=== PATIENT | male | born 1995 | race Caucasian/White ===

== ENCOUNTER → 2018-03-01 | Outpatient (CLI) | payer OTHER ==
[~2018-03-01] MED LIST: NAPR-1071 PO
--- NOTE | 2018-03-01 16:15 | Diagnostic Imaging Report ---
INDICATION: Rib pain bilaterally. TIME OF EXAM: 2:33 PM COMPARISON: Correlation is made with prior chest from 07/31/2015. FINDINGS: The heart size is normal. The lungs are clear. Pulmonary vascularity is normal. No infiltrate, effusion or pneumothorax is seen. IMPRESSION: No acute abnormality is detected. Dictated by: Dictated on workstation # [id number]
--- NOTE | 2018-03-01 16:31 | Diagnostic Imaging Report ---
Indication: Bilateral rib pain. Time of exam: 2:34 PM Multiple views of the bilateral ribs were obtained. No displaced rib fractures detected. No parenchymal contusion, effusion or pneumothorax is seen. Impression: Unremarkable bilateral rib radiographs. Dictated by: Dictated on workstation # [id number]
== END ==
LOC: RAD 14:00
PROVIDERS: ATTEND Family Medicine
DX: R07.81 Pleurodynia (principal); R06.09 Other forms of dyspnea
CPT/HCPCS: 71046; 71110